=== PATIENT | male | born 1950 | race Hispanic/Latino ===

== ENCOUNTER → 2019-02-08 | Outpatient (CLI) | payer OTHER, MEDICARE ==
[~2019-02-08] MED LIST: Aspirin PO; HYDR-2132 PO; LOSA1TAB42 PO
== END | disposition home or self-care (01) ==
LOC: SHCH 15:59
PROVIDERS: ATTEND Internal Medicine Cardiovascular Disease
DX: I06.0 Rheumatic aortic stenosis (principal)
CPT/HCPCS: 93306

== ENCOUNTER → 2019-02-19 | Outpatient (CLI) | payer OTHER, MEDICARE ==
[~2019-02-19] VITALS: Ht 162.6 cm; Wt 81.2 kg
[~2019-02-19] MED LIST changes: +REGADENOSON 0.4 MG/5 ML PF SYG IVP SCH
== END | disposition home or self-care (01) ==
LOC: SHCH 08:00
PROVIDERS: ATTEND Internal Medicine Cardiovascular Disease
DX: I10 Essential (primary) hypertension (principal); R06.00 Dyspnea, unspecified; R07.89 Other chest pain
CPT/HCPCS: 78452; 93017; 96374; A9500 ×2; J2785

== ENCOUNTER 2024-12-16 10:40 | Emergency (ER) | payer MEDICARE, OTHER ==
[~2024-12-16] VITALS: Ht 162.6 cm; Wt 81.2 kg
[~2024-12-16 10:40] MED LIST changes: -REGADENOSON 0.4 MG/5 ML PF SYG IVP SCH
[2024-12-16] MEDS: ORPHENADRINE 60MG/2ML IM ONE (11:16)
[2024-12-16] MEDS: ketOROlac 30MG VIAL (30MG/ML) IVP ONE (11:16)
--- NOTE | 2024-12-16 11:23 | EKG ---
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
[2024-12-16 13:00] VITALS: BP 158/75; PULSE 82; RESP 16; TEMP 98.1; O2SAT 98
--- NOTE | 2024-12-16 13:03 | ERN ---
General Chief Complaint: Rib Pain Stated Complaint: RIB PAIN ON LEFT SIDE DUE TO FALL Time Seen by MD: 10:43 Source: patient History of Present Illness Initial Comments Patient is a 74-year-old male coming in to be evaluated for left-sided chest discomfort. Patient states he fell down weeks ago has a left-sided rib pain. Allergies: Coded Allergies: No Known Drug Allergies (Unverified Allergy, 08/13/12) Home Meds Active Scripts Hydrocodone Bit/Acetaminophen ([place] 5/325Mg) 1 Tab Tablet, 1-2 TAB PO Q6H PRN for PAIN, #90 TAB Prov:FADY LOVE MD 11/25/15 [Aspirin] 325 MG TABLET No Conflict Check, 325 MG PO DAILYDINNER, #20 0 Refills Prov:FADY LOVE MD 11/25/15 Reported Medications Losartan/Hydrochlorothiazide (Losartan-Hctz 100-12.5 mg Tab) 1 Each Tablet, 1 EACH PO DAILY, TAB 11/20/15 Past Medical History Past Medical History: Hypertension Medical History Other: CHRONIC PAIN Past Surgical History: Other Surgical History Other: KNEE, HIP ROS Dictation CONSTITUTIONAL: No chills, no fever, no weakness, no diaphoresis, no malaise. HEAD/FACE: No signs of trauma. EENT: No eye pain, no blurred vision, no tearing, no double vision, no ear pain, no ear discharge, no nose pain, no nasal congestion, no throat pain, no throat swelling, no mouth pain. RESPIRATORY: No cough, no orthopnea, no SOB, no stridor, no wheezing. CARDIOVASCULAR: No chest pain, no edema, no palpitations, no syncope. GASTROINTESTINAL/ABDOMINAL: No abdominal pain, no constipation, no diarrhea, no nausea, no vomiting. GENITOURINARY: No abnormal discharge, no dysuria, no frequent urination, no hematuria. No complaints of pain in the genitals. MUSCULOSKELETAL: No back pain, no gout, no joint pain, no joint swelling, muscle pain, no muscle stiffness, no neck pain. INTEGUMENTARY: No change in color, no change in hair/nails, no dryness, no lesion, no lumps, no rash. NEUROLOGICAL/PSYCH: No anxiety, not depressed, no emotional problem, no headache, no numbness, no pre-existing deficit, no history of seizures, no tremors, no weakness. HEMATOLOGIC/LYMPHATIC: Not anemic, no history of blood clots, no apparent bleeding, no bruising, glands not swollen. All Systems Negative, Except as Noted. Physical Exam Physical Exam Dictation VITAL SIGNS: Reviewed. GENERAL APPEARANCE: Alert, oriented x3, no acute distress, obese. HEAD AND FACE: Non-traumatic. EYES: PERRL, pink conjunctivas, eyelid no trauma, anterior chamber clear. EARS: Pinnas intact and no signs of trauma or erythema. Ear canals clear and no discharge. TMs no erythema. NOSE: No discharge, no bleeding. OROPHARYNX: Mouth normal, teeth no caries, tongue pink. Pharynx clear, no erythema. Tonsils no exudates, no abscesses noted. Mucous membrane moist. NECK: Supple, non-tender, no thyromegaly, no masses, no JVD, no bruits. BREAST: Deferred. CHEST: tenderness, no crepitus, no paradoxical movement, no retractions. LUNGS: Clear, well-ventilated, symmetric, no rales, no wheezing, no rhonchi, no stridor, good breath sounds bilaterally. HEART: Regular rate, regular rhythm, no murmur, no gallops. VASCULAR: No peripheral edema. ABDOMEN: Soft, positive bowel sounds, nondistended, no guarding, nontender, no rebound, no masses no hepatomegaly, no splenomegaly, no Gregory's sign, no hernias. RECTAL: Deferred. GENITAL: Deferred. NEUROLOGICAL: Normal speech, gross motor function intact, gross sensory function intact. MUSCULOSKELETAL: Neck nontender, full range of motion, back nontender, full range of motion. EXTREMITIES: Nontender, full range of motion. SKIN: Color pink, dry, no turgor, no rash, no lacerations, no abrasions, no contusions. LYMPHATICS: Deferred. Results Laboratory and Microbiology Labs Reviewed?: Yes EKG/XRAY/US/CT/MRI EKG Comment 12/16/2024 time 11:20 Ventricular rate 82 Sinus rhythm [place] 148 Right bundle-branch block No ST wave elevation or depression X-RAY Comment X-ray left sided rib series-NA[facility] MDM: Differential diagnosis: Fall, chest wall pain, costochondritis pain, pneumothorax Rationale: Tests considered and ordered secondary to shared decision making include: Previous outside records reviewed: Old ER visits. Risk of complication and/or morbidity or mortality of patient management: None Medications-Per medication reconciliation Need for hospitalization: Patient does not meet criteria for hospitalization. Patient is a 74-year-old gentleman coming in complaining of left-sided chest pain after a fall. X-ray did not disclose acute findings. Patient states his pain improved with the antispasmodics and anti-inflammatories. We will be discharged in stable condition. ED Course Orders Procedure Category Date Status Time 12 Lead Ekg Tracing- EKG 12/16/24 Complete Technical 10:59 Ribs Uni Lt W Pa RAD 12/16/24 Taken Chest 3+Vws 10:59 Orphenadrine Citrate PHA 12/16/24 Complete (Norflex) 11:00 Ketorolac PHA 12/16/24 Complete Tromethamine 30mg/Ml 11:00 Current Medications Medications (Trade) Dose Ordered Sig/Didier Route PRN Reason Start Time Stop Time Status Last Admin Dose Admin Ketorolac Tromethamine (toRADol) 30 mg ONCE ONCE IVP 12/16/24 11:00 12/16/24 11:02 DC 12/16/24 11:16 Orphenadrine Citrate (Norflex) 60 mg ONCE ONCE IM 12/16/24 11:00 12/16/24 11:02 DC 12/16/24 11:16 Vital Signs Date Time Temp Pulse Resp B/P (MAP) Pulse Ox O2 Delivery O2 Flow Rate FiO2 12/16/24 13:00 98.1 82 16 158/75 98 Room Air* 0 21 12/16/24 10:59 98.1 90 16 160/78 98 Room Air* 0 21 12/16/24 10:43 98.2 90 16 160/78 98 Room Air 0 DX & DISP Disposition: Discharge Departure Impression: Primary Impression: Fall Additional Impression: Chest wall pain Condition: Stable Scripts Naproxen (Naproxen) 250 Mg Tablet 1 TAB PO BID for pain for 7 Days, #14 TAB 0 Refills Prov: DAIN ROGERS MD 12/16/24 Methocarbamol (Robaxin) 750 Mg Tab 1 TAB PO BID for 5 Days, #10 TAB 0 Refills Prov: DAIN ROGERS MD 12/16/24 Additional Instructions: FOLLOW-UP WITH PRIMARY CARE PROVIDER IN 1 TO 2 DAYS. TAKE MEDICATIONS DIRECTED HERE IN THE EMERGENCY ROOM. OKAY TO CONTINUE HOME MEDICATIONS UNLESS OTHERWISE DISCUSSED DURING YOUR VISIT IN THE EMERGENCY ROOM TODAY. RETURN TO YOUR NEAREST EMERGENCY ROOM IF SYMPTOMS WORSEN OR IF THERE IS NO IMPROVEMENT. CALL 911 IF YOU NEED IMMEDIATE ASSISTANCE. TAKE TYLENOL [id number] NEEDED AND IF NO CONTRAINDICATIONS ARE PRESENT. INCREASE ORAL HYDRATION. A WOUND CULTURE OR URINE CULTURE WAS ORDERED HERE IN THE EMERGENCY ROOM DEPARTMENT PLEASE FOLLOW-UP WITH PRIMARY CARE PROVIDER AND ADVISE THEM TO GET REPORTS FROM OUR FACILITY. IF YOU HAD ANY YURI WRAP/SPLINTS THAT WERE APPLIED HERE, PLEASE DO NOT REMOVE THEM UNTIL YOU SEE YOUR PRIMARY CARE OR SPECIALTY. Referrals: Referrals: BRANDY MATHEWS MD (PCP) Time of Disposition: 13:05 DAIN ROGERS MD Dec 16, 2024 13:03
[2024-12-16] MEDS ORDERED: NAPR-1196 PO (13:06)
[2024-12-16] MEDS ORDERED: METH-662 PO (13:06)
--- NOTE | 2024-12-16 16:03 | HMCIMG ---
RIBS UNI LT W PA CHEST 3+VWS REASON: rib pain. COMPARISON: None TECHNIQUE: 5 images of the chest and left ribs were obtained. FINDINGS: No acute pulmonary infiltrates is seen with the heart is not enlarged. Degenerative changes are seen. No acute displaced fracture is seen. IMPRESSION: Findings described above.
== END 2024-12-16 13:12 | disposition home or self-care (01) ==
LOC: EDH 10:40
DX: R07.89 Other chest pain (principal); I10 Essential (primary) hypertension; Z79.899 Other long term (current) drug therapy
CPT/HCPCS: 99284; 96374; 71101; 93005; 96372; J1885; J2360

== ENCOUNTER 2025-06-25 11:30 | Emergency (ER) | payer OTHER ==
[~2025-06-25] VITALS: Ht 162.6 cm; Wt 84.8 kg
[~2025-06-25 11:30] MED LIST changes: +METH-662 PO; +NAPR-1196 PO
[2025-06-25 13:50] LABS: IMMATURE GRANULOCYTE ABSOLUTE 0.02 K/uL (0-1); NUCLEATED RED BLOOD CELLS 0.0 % (0.0-0.19); PLATELET COUNT (AUTO) 327 K/uL (130-400); RED BLOOD CELL COUNT(AUTO) 4.76 MIL/uL (4.50-6.20); RED CELL DISTRIBUTION WIDTH 13.1 % (11.0-15.5); WHITE BLOOD COUNT (AUTO) 6.2 K/uL (4.8-10.8)
[2025-06-25 13:55] LABS: APPEARANCE,URINE CLEAR (CLEAR); GLUCOSE, URINE (UA) NEGATIVE (NEGATIVE); LEUKOCYTE ESTERASE ,URINE NEGATIVE Leu/uL (NEGATIVE); NITRATE,URINE NEGATIVE (NEGATIVE); OCCULT BLOOD,URINE NEGATIVE (NEGATIVE)
[2025-06-25 14:00] LABS: ADD UA MICROSCOPIC NO
[2025-06-25 14:00] LABS: CREATININE 0.9 mg/dL (0.5-1.3); GLOMERULAR FILTR. RATE CALC 90.0 mL/min (>90); GLUCOSE,RANDOM 109.0 mg/dL (70-105); SODIUM SERUM 138.0 mmol/L (136-145); UREA NITROGEN, BLOOD 13.0 mg/dL (7-18)
--- NOTE | 2025-06-25 14:12 | ERN ---
ED Note History of Present Illness Stated Complaint: DIZZINESS Chief Complaint: Dizzy/Light Headed Time Seen by MD: 12:35 Time Seen by Midlevel: 13:00 Dictation: 75-year-old male with a history of hypertension coming in with complaints of having a black out incident yesterday when he stood up from the chair, today states he feels dizzy, states it is worse when he tries to the right. Denies having any numbness, tingling, weakness to any unilateral extremity, no focal neurological deficits. Denies any fever, nausea and vomiting or diarrhea. Denies any chest pain or chest discomfort. Allergies: Coded Allergies: No Known Drug Allergies (Unverified Allergy, 08/13/12) Home Meds Active Scripts Naproxen (Naproxen) 250 Mg Tablet, 1 TAB PO BID for pain for 7 Days, #14 TAB 0 Refills Prov:DAIN ROGERS MD 12/16/24 Methocarbamol (Robaxin) 750 Mg Tab, 1 TAB PO BID for 5 Days, #10 TAB 0 Refills Prov:DAIN ROGERS MD 12/16/24 Hydrocodone Bit/Acetaminophen ([place] 5/325Mg) 1 Tab Tablet, 1-2 TAB PO Q6H PRN for PAIN, #90 TAB Prov:FADY LOVE MD 11/25/15 [Aspirin] 325 MG TABLET No Conflict Check, 325 MG PO DAILYDINNER, #20 0 Refills Prov:FADY LOVE MD 11/25/15 Reported Medications Losartan/Hydrochlorothiazide (Losartan-Hctz 100-12.5 mg Tab) 1 Each Tablet, 1 EACH PO DAILY, TAB 11/20/15 Past Medical History Past Medical History: Hypertension Additional Past Medical Hx: CHRONIC PAIN Surgical History: Other Surgical History Other: BILAT KNEE SX, ABD HERNIA REPAIR, RT HIP SX Review of System Dictation Constitutional: Negative for fever,chills, and weight loss Eyes: Negative for injury, pain,redness, and discharge ENT: Negative for injury,pain or swelling Cardiovascular: Negative for chest pain, palpitations, and edema Respiratory: Negative for shortness of breath, cough, and wheezing, Abdomen/GI: Negative for abdominal pain, nausea, vomiting, diarrhea, and constipation Back: Negative for injury and pain : Negative for injury, bleeding and discharge MS/Extremity: Negative for injury and deformity Skin: Negative for rash, and discoloration Neuro: Negative for headache, weakness, numbness, tingling, and seizure complaining of dizziness on sudden movements and when he turns to the right Psych: Negative for suicide ideation, homicidal ideation, and hallucinations Review of Systems: was completed Initial Vital Sign VS Vital Signs Date Time Temp Pulse Resp B/P (MAP) Pulse Ox O2 Delivery O2 Flow Rate FiO2 06/25/25 11:33 97.9 70 16 172/81 99 Room Air 0 Physical Exam Dictation General: awake, alert, NAD Head/Face: Normocephalic, atraumatic Eyes: PERRL, EOMI, vision at baseline ENT: oral cavity clear, TMs clear, no signs of infection Neck: Trachea midline, supple, no nuchal rigidity Cardiovascular: RRR, normal S1/S2, No MRGs, no JVD Respiratory: CTAB, no respiratory distress, No rales or wheezes Abdomen: Soft, non-tender, non-distended, normal bowel sounds, no guarding or rebound. Skin: Warm, dry, normal turgor, no rash MS/Extremity: Pulses equal, no cyanosis, neurovascular intact, FROM Neuro: COAx4, GCS 15, strength 5/5, CN 2-12 intact, normal cerebellar exam, normal gait, Psych: Normal behavior, mood, and affect normal Results (Laboratory/Radiology) Laboratory/Radiology Laboratory Tests Test 06/25/25 13:08 06/25/25 13:39 Urine Color LIGHT-YELLOW (YELLOW) Urine Appearance CLEAR (CLEAR) Urine pH 7.0 (5.0-8.0) Urine Specific [place] 1.013 (1.001-1.031) Urine Protein NEGATIVE mg/dL (NEGATIVE) Urine Glucose (UA) NEGATIVE mg/dL (NEGATIVE) Urine Ketones NEGATIVE mg/dL (NEGATIVE) Urine Occult Blood NEGATIVE (NEGATIVE) Urine Nitrate NEGATIVE (NEGATIVE) Urine Bilirubin NEGATIVE mg/dL (NEGATIVE) Urine Urobilinogen 0.2 mg/dL (0.2-1.0) Urine Leukocyte Esterase NEGATIVE Michelle/uL White Blood Count 6.2 K/uL (4.8-10.8) Red Blood Count 4.76 MIL/uL (4.50-6.20) Hemoglobin 13.8 g/dL (14.0-18.0) L Hematocrit 41.2 % (42-54) L Mean Corpuscular Volume 86.6 fL (79-99) Mean Corpuscular Hemoglobin 29.0 pg (27.0-33.0) Mean Corpuscular Hemoglobin Concent 33.5 g/dL (32.0-36.0) Red Cell Distribution Width 13.1 % (11.0-15.5) Platelet Count 327 K/uL (130-400) Mean Platelet Volume 9.7 fL (7.5-10.5) Immature Granulocyte % (Auto) 0.3 % (0-1) Neutrophils (%) (Auto) 55.4 % (40.0-77.0) Lymphocytes (%) (Auto) 30.4 % (21.0-51.0) Monocytes (%) (Auto) 9.7 % (3.0-13.0) Eosinophils (%) (Auto) 3.1 % (0.0-8.0) Basophils (%) (Auto) 1.1 % (0.0-5.0) Neutrophils # (Auto) 3.4 K/uL (1.8-7.7) Lymphocytes # (Auto) 1.9 K/uL (1.0-4.8) Monocytes # (Auto) 0.6 K/uL (0.1-1.0) Eosinophils # (Auto) 0.19 K/uL (0.00-0.70) Basophils # (Auto) 0.07 K/uL (0.00-0.20) Absolute Immature Granulocyte (auto 0.02 K/uL (0-1) Nucleated Red Blood Cells 0.0 % (0.0-0.19) Sodium Level 138 mmol/L (136-145) Potassium Level 4.5 mmol/L (3.5-5.1) Chloride Level 102 mmol/L (101-111) Carbon Dioxide Level 31 mmol/L (21-32) Blood Urea Nitrogen 13 mg/dL (7-18) Creatinine 0.9 mg/dL (0.5-1.3) Glomerular Filtration Rate Calc 90 mL/min (>90) Random Glucose 109 mg/dL (70-105) H Total Calcium 8.9 mg/dL (8.5-10.1) Troponin I High Sensitivity 7 ng/L (4-75) Labs Reviewed?: Yes EKG Comment: EKGs done at 11:39 a.m.. Sinus rhythm at a rate of 71. Right bundle branch block. No STEMI interpreted by ER MD. CT Scan Comment: [facility] [address] [place] [address] IMAGING REPORT Signed PATIENT: LOBITO FULLER MR#: [id number] : 1950 SEX: M AGE: 75 LOCATION: [facility] ORDER 1330 STATUS: REG ER REPORT#: [id number] SERVICE [id number] REASON: SYNCOPE, DIZZINESS ORDERING PHYSICIAN: MUKUND GONZALEZ CNP PROCEDURE: HEAD WO - CT HEAD/BRAIN W/O CONTRAST EXAM: CT Head Without IV contrast. CLINICAL HISTORY: SYNCOPE, DIZZINESS TECHNIQUE: Axial computed tomography images of the head/brain without intravenous contrast. COMPARISON: None provided. FINDINGS: BRAIN: No acute bleed or infarct. Chronic ischemic and atrophic changes. VENTRICLES: No hydrocephalus. ORBITS: The orbits are unremarkable. SINUSES AND MASTOIDS: The paranasal sinuses and mastoid air cells are clear. BONES: No fracture. SOFT TISSUES: Unremarkable. IMPRESSION: No acute bleed or infarct. Chronic ischemic and atrophic changes. /[place] DICTATED BY: TIM COPELAND MD DATE: 06/25/251634 ELECTRONICALLY SIGNED BY: TIM COPELAND MD DATE: 06/25/251634 ED Course ED Course Orders Procedure Category Date Status Time 12 Lead Ekg Tracing- EKG 06/25/25 Logged Technical 11:42 Cbc With Differential LAB 06/25/25 Complete 13:29 Basic Metabolic Panel LAB 06/25/25 Complete 13:29 Troponin I High LAB 06/25/25 Complete Sensitivity 13:29 12 Lead Ekg Tracing- EKG 06/25/25 Logged Technical 13:29 Urinalysis Profile LAB 06/25/25 Complete 13:29 Ct Head/Brain W/O CT 06/25/25 Resulted Contrast 13:29 0.9%Nacl 1000ml (Ns PHA 06/25/25 Complete 1000ml) 13:29 Meclizine Hcl 25 Mg PHA 06/25/25 Complete (Antivert 25 Mg) 13:30 Current Medications Medications (Trade) Dose Ordered Sig/Didier Route PRN Reason Start Time Stop Time Status Last Admin Dose Admin Meclizine HCl (ANTIvert 25 mg) 25 mg ONCE ONCE PO 06/25/25 13:30 06/25/25 13:32 DC 06/25/25 14:24 Sodium Chloride 1,000 ml @ 1,000 mls/hr Q1H STAT IV 06/25/25 13:29 06/25/25 14:28 DC 06/25/25 14:24 Vital Signs Date Time Temp Pulse Resp B/P (MAP) Pulse Ox O2 Delivery O2 Flow Rate FiO2 06/25/25 11:33 97.9 70 16 172/81 99 Room Air 0 Medical Decision Making MDM MDM: 75-year-old male with a history of hypertension presents with a episode of dizziness since yesterday described as feeling like he is going to black out. Patient states yesterday symptoms resolved but again happened today. Symptoms are triggered when standing suddenly or when turning his head to the right. Den ies headache, vision changes, numbness, weakness, tingling, slurred speech, chest pain, palpitations, shortness a breath, nausea, vomiting, or syncope today. No recent illness, no history of arrhythmia or stroke. On physical exam patient is alert oriented speaking in full sentences. Normal gait observed in ED. No focal neurological deficits. No slurred speech, no facial droop. No nystagmus appreciated on exam. Cardiopulmonary exam normal. Labs include CBC, CMP and troponin with no acute abnormalities. EKGs shows no ischemic changes. CT scan of the head shows no acute intracranial abnormality. In ED patient received IV fluids and meclizine with symptom improvement. Symptoms consistent with positional dizziness likely BPPV versus other static related now improved. No evidence of any central neurological process or cardiac etiology in ED. Patient will be discharged home with a meclizine p.r.n. encourage hydration and see PCP BG in 1-2 days. Educated on strict return precautions including vomiting, falls, inability to walk, numbness, slurred speech, chest pain or fainting. Patient verbalized understanding, answered all questions. Differential diagnosis: Vertigo, dehydration, orthostatic dizziness, anemia, electrolyte abnormality, stroke. Rationale: Tests considered and ordered secondary to shared decision making include: Previous outside records reviewed: Old ER visits. Risk of complication and/or morbidity or mortality of patient management: None Medications-Per medication reconciliation Need for hospitalization: Patient does not meet criteria for hospitalization. Need for emergency major/minor surgery: No There are no social concerns with this patient. Prescription drug management Prescriptions will include symptomatic care Patient's prior external medical records from other ER visits were reviewed by me as indicated. Prior testing and results from previous visits were reviewed. Prior tests were taken into account with medical decision making and resource utilization, independent historian/historians were used to obtain complete medical history. I independently interpreted the test that were performed, results were reviewed by me and considered findings on radiology if ordered. Medical management and examination interpretation discussions were had by me with other qualified healthcare professionals as indicated for the patient's care. DX & DISP Disposition: Discharge Departure Impression: Primary Impression: Vertigo Condition: Stable Scripts Meclizine HCl (Meclizine HCl) 25 Mg Tablet 25 MG PO TID for vertigo for 3 Days, #9 TAB 0 Refills Prov: MUKUND GONZALEZ CNP 06/25/25 Additional Instructions: Return to the hospital if you develop any vomiting, falls, inability to walk, new numbness/weakness, slurred speech, chest pain, fainting or any worsening symptoms. Otherwise follow up with your primary care provider in 1-2 days. Referrals: BRANDY MATHEWS MD (PCP) Time of Disposition: 16:14 I have reviewed the case, and I agree with, Diagnosis and Plan MUKUND GONZALEZ CNP Jun 25, 2025 14:12
[2025-06-25] MEDS: 0.9%NACL 1000ML 1,000 ML IV STA (14:24)
--- NOTE | 2025-06-25 15:36 | HMCIMG ---
EXAM: CT Head Without IV contrast. CLINICAL HISTORY: SYNCOPE, DIZZINESS TECHNIQUE: Axial computed tomography images of the head/brain without intravenous contrast. COMPARISON: None provided. FINDINGS: BRAIN: No acute bleed or infarct. Chronic ischemic and atrophic changes. VENTRICLES: No hydrocephalus. ORBITS: The orbits are unremarkable. SINUSES AND MASTOIDS: The paranasal sinuses and mastoid air cells are clear. BONES: No fracture. SOFT TISSUES: Unremarkable. IMPRESSION: No acute bleed or infarct. Chronic ischemic and atrophic changes. /[place]
[2025-06-25] MEDS ORDERED: MECL-302 PO (16:14)
[2025-06-25 16:35] VITALS: BP 156/73; PULSE 80; RESP 18; TEMP 98.1; O2SAT 99
--- NOTE | 2025-06-27 11:13 | EKG ---
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
== END 2025-06-25 16:41 | disposition home or self-care (01) ==
LOC: EDH 11:30
DX: R42 Dizziness and giddiness (principal); I10 Essential (primary) hypertension; G89.29 Other chronic pain; Z98.890 Other specified postprocedural states; Z79.899 Other long term (current) drug therapy
CPT/HCPCS: 99284; 96360; 70450; 96361; 84484; 80048; 85025; 81003; 36415; 93005; J7030